=== PATIENT | female | born 1955 | race Hispanic/Latino ===

== ENCOUNTER → 2024-06-10 | Outpatient (CLI) | payer OTHER ==
--- NOTE | 2024-06-10 09:01 | HMCIMG ---
CT HEART SAVER PROMOTIONAL HISTORY: Cardiac calcification scoring. FINDINGS: The cardiac calcification scoring is 0. Limited examination of the heart was performed. The study is done for additional or incidental findings. IMPRESSION: 1.5 cm posterior-third lateral left breast nodule. Subcentimeter low attenuating lesion within the left hepatic lobe is too small to characterize, but statistically likely represents a simple cyst. Sonographic imaging can be obtained for further evaluation.
== END | disposition home or self-care (01) ==
LOC: RAH 07:45
PROVIDERS: ATTEND Internal Medicine
DX: Z13.6 Encounter for screening for cardiovascular disorders (principal); N63.20 Unspecified lump in the left breast, unspecified quadrant
CPT/HCPCS: 75571